=== PATIENT | male | born 1985 | race Caucasian/White ===

== ENCOUNTER → 2016-11-17 | Outpatient (CLI) | payer OTHER ==
--- NOTE | ~2016-11-17 | US37 ---
[facility] A Service of [facility] RADIOLOGY TEXT RESULTS PATIENT: ANGELINA EID LOCATION: CNIV : 81 UNIT #: [id number] AGE: [address]: Tl Gomez MD SEX: M ORDER DR: [id number] [facility] [address] [place], [place] [address] [id number] O MR#: [id number] [facility] #: [id number] NAME: ANGELINA EID. : 1985 SEX: M STUDY DATE/TIME: 11/17/2016 9:28 UNIT: CNIV ROOM: STUDY DESCRIPTION: US Carotid W/Doppler Bilateral Attending Physician: Tl Gomez M.D. Referring Physician: Tl Gomez M.D. Ordering Physician: Tl Gomez M.D. Primary Care Physician: Bianca Reese Aprn MEDICAL IMAGING REPORT This report is preliminary unless electronic signature is present EXAM Carotid duplex scan, 11/17/2016 HISTORY Cervical bruit. Hypertension. Hyperlipidemia. FINDINGS The right common carotid artery is patent without plaque. The right internal and external carotid arteries have no plaque. Peak systolic velocity in the distal right internal carotid artery is 69 cm/sec with an end-diastolic velocity of 32 cm/sec. The ICA/CCA ratio on the right is 0.46. Peak systolic velocity in the right external carotid artery is 95 cm/sec. The right vertebral artery is patent with antegrade flow. The left common carotid artery is patent without plaque. The left internal and external carotid arteries have no plaque. Peak systolic velocity in the mid left internal carotid artery is 46 cm/sec with an end-diastolic velocity of 18 cm/sec. The ICA/CCA ratio on the left is 0.36. Peak systolic velocity in the left external carotid artery is 40 cm/sec. The left vertebral artery is patent with antegrade flow. IMPRESSION Normal examination of the carotid arteries bilaterally. No stenosis of the internal or external carotid artery on either side. Patent vertebral arteries bilaterally with antegrade flow. Dictated by... Al Weber M.D. THIS IS AN ELECTRONICALLY VERIFIED REPORT [facility]. [facility] A Service of [facility] & [facility] RADIOLOGY TEXT RESULTS PATIENT: ANGELINA EID LOCATION: CNIV : [birth year] UNIT #: [id number] AGE: [address]: Tl Gomez MD SEX: M ORDER DR: Al Weber M.D. at 11/20/2016 8:10 AM Patrizia TD: 11/17/2016 12:57 JOB #: [id number] MEDICAL IMAGING REPORT Page 1 of 1 COPY
== END | disposition home or self-care (01) ==
LOC: CNIV 08:30
DX: R09.89 Other specified symptoms and signs involving the circulatory and respiratory systems (principal); R94.31 Abnormal electrocardiogram [ECG] [EKG]
CPT/HCPCS: 93880

== ENCOUNTER → 2016-11-24 | Outpatient (CLI) | payer OTHER ==
--- NOTE | ~2016-11-24 | ST ---
Unit #: [id number] #: [id number] Patient: ANGELINA EID [id number] [place], [place] [address] [id number] O MR#: [id number] NAME: ANGELINA EID. : 1985 SEX: M STUDY DATE/TIME: 11/24/2016 UNIT: [facility] ROOM: STUDY DESCRIPTION: Cardiac stress test. Attending Physician: Tl Gomez M.D. Referring Physician: Tl Gomez M.D. Primary Care Physician: Bianca Reese Aprn CARDIOLOGY REPORT EXAM Exercise Cardiolite stress test. PROCEDURES Baseline EKG normal sinus rhythm with ventricular rate 73 beats per minute, slow R wave progression, left ventricular hypertrophy, nondiagnostic Q waves in the inferior leads. The patient walked on the treadmill for 11 minutes utilizing Ravi protocol, achieving a work load of 13.40 METS. The patient reached 91% of the maximum target heart rate at 171 beats per minute, with maximum blood pressure response of 174/82 mmHg. EKG during the test was equivocal to baseline. No acute ischemic changes. The patient had no complaints of chest pain, palpitations or dizziness. Had increased shortness of breath and fatigue which resolved during recovery phase. IMPRESSION 1. Functional class 3 with workload of 13.40 METS. 2. 91% of the maximum target heart rate achieved at 171 beats per minute, with a maximum blood pressure response of 174/82 mmHg. 3. The patient had no complaints of chest pain, palpitations or dizziness. Had increased shortness of breath and fatigue which resolved in recovery phase. 4. EKG during the test was equivocal to baseline. 5. Cardiolite was injected at maximum target heart rate. Radionuclide test pending. Please correlate with nuclear images. Dictated by... Kaitlin Alanis A.P.R.N. for Jailene Torres TD: 11/24/2016 11:12 JOB #: [id number] CC: Bianca Reese Aprn [facility] Unit #: [id number] #: [id number] Patient: ANGELINA EID CARDIOLOGY REPORT Page 1 of 1 X Kaitlin Alanis APRN CARDIOLOGY REPORT
--- NOTE | ~2016-11-24 | TH ---
Unit #: [id number] #: [id number] Patient: ANGELINA EID [id number] [address] [id number] O MR#: [id number] NAME: ANGELINA EID : 1985 SEX: M STUDY DATE/TIME: 11/24/2016 UNIT: [facility] ROOM: STUDY DESCRIPTION: Attending Physician: Tl Gomez M.D. Referring Physician: Tl Gomez M.D. Primary Care Physician: Bianca Reese Aprn CARDIOLOGY REPORT EXAM Exercise Cardiolite stress test, nuclear portion. PROCEDURE Using technetium 99m labeled Cardiolite, rest and stress SPECT images were obtained. Multiple SPECT images were obtained in various views including horizontal and vertical long axis and short axis views of the left ventricle. Images were obtained by gated SPECT method. The patient was administered 9.76 mCi of Cardiolite at rest. The patient was administered 31.8 mCi of Cardiolite at peak exercise. Total exercise time is 11 minutes. On the stress images, there is normal perfusion noted. The rest images showed decreased isotope activity involving the inferoapical and the anteroapical wall consistent with soft tissue artifact. The left ventricular ejection fraction is calculated to be 54%. There is no focal wall motion abnormality seen. CONCLUSION 1. No stress-induced ischemia noted. 2. The left ventricular ejection fraction is calculated to be 54%. 3. There is no focal wall motion abnormality seen. 4. Normal exercise Cardiolite stress test. Dictated by... Jailene Torres TD: 11/24/2016 13:52 JOB #: [id number] CARDIOLOGY REPORT Page 1 of 1 X Jayashree Weeks MD <ELECTRONICALLY SIGNED> 02/17/17 1429 CARDIOLOGY REPORT
== END | disposition home or self-care (01) ==
LOC: CNUC 08:42
DX: R07.89 Other chest pain (principal); R94.31 Abnormal electrocardiogram [ECG] [EKG]; R09.89 Other specified symptoms and signs involving the circulatory and respiratory systems
CPT/HCPCS: 78452; 93017; A9500